=== PATIENT | male | born 1955 | race Two or more races ===

== ENCOUNTER 2021-02-21 12:16 | Inpatient (IN) | payer MEDICARE, OTHER ==
[~2021-02-21] VITALS: Ht 175.3 cm; Wt 80.7 kg
[2021-02-21] MEDS ORDERED: Z GUARD REMEDY PASTE 57 GM TUBE TOP PRN (19:45)
[2021-02-21 21:10] VITALS: BP 142/79
[2021-02-21] MEDS ORDERED: ATOR20TA PO (21:33)
[2021-02-21] MEDS ORDERED: CHOL100062 PO (21:33)
[2021-02-21] MEDS ORDERED: PANT40TA49 PO (21:33)
[2021-02-21] MEDS ORDERED: AMLO-212 PO (21:33)
[2021-02-21] MEDS ORDERED: GLIP10TA11 PO (21:33)
[2021-02-21] MEDS ORDERED: OXCA300T15 PO (21:33)
[2021-02-21] MEDS ORDERED: ASPI-612 PO (21:33)
[2021-02-21] MEDS ORDERED: DEXTROSE 50% 50 ML DISP.SYRIN IV PRN (21:45)
--- NOTE | 2021-02-22 01:51 | NUR ---
Admitted pt on Rehab from [facility] with dx of subacute CVA, left sided weakness noted. He is alert and oriented x4, able to make needs known. Denies pain and discomfort at this time. On room air, no respiratory distress. Admission process observed, full body assessment done with photos taken, and MRSA swab collect and sent to lab. Urinal at bedside. Informed Dr. Diaz of admission and Damien Palumbo NP to do med recon. All needs attended. Call light placed within reach. Will continue to monitor.
[2021-02-22 05:21] VITALS: BP 152/78
[2021-02-22] MEDS: BLOOD SUGAR DIAGNOSTIC 1 EACH STRIP VI SCH ×5 (06:48→20:28)
[2021-02-22 09:03] VITALS: BP 147/80
[2021-02-22] MEDS ORDERED: METF-442 PO (10:27)
[2021-02-22] MEDS ORDERED: LABE300T2 PO (10:27)
[2021-02-22] MEDS ORDERED: CYCL5TAB PO (10:28)
[2021-02-22] MEDS ORDERED: LOSA1TAB39 PO (10:29)
[2021-02-22 11:59] VITALS: BP 162/83
[2021-02-22] MEDS: INSULIN REGULAR, HUMAN 300 UNIT/3 ML VIAL SQ PRN ×2 (17:01→20:28)
[2021-02-22] MEDS: AMLODIPINE 5 MG TABLET PO SCH (17:02)
[2021-02-22 20:18] VITALS: BP 140/85
[2021-02-22] MEDS: ATORVASTATIN 20 MG TABLET PO SCH (20:24)
[2021-02-22] MEDS: OXCARBAZEPINE 300 MG TABLET PO SCH (20:24)
[2021-02-22] MEDS: ACETAMINOPHEN 325 MG TABLET PO PRN (21:52)
[2021-02-23 04:18] VITALS: BP 162/98
[2021-02-23] MEDS: ACETAMINOPHEN 325 MG TABLET PO PRN (06:10)
[2021-02-23] MEDS: AMLODIPINE 5 MG TABLET PO SCH ×2 (06:10→16:55)
[2021-02-23] MEDS: PANTOPRAZOLE SODIUM 40 MG TABLET.DR PO SCH (06:38)
[2021-02-23] MEDS: BLOOD SUGAR DIAGNOSTIC 1 EACH STRIP VI SCH ×4 (06:39→20:38)
--- NOTE | 2021-02-23 06:40 | NUR ---
Pt slept intermittently throughout the night. Tylenol PRN given x2 d/t to headache, noted effective. Latest BP 162/88, Norvasc 5 mg given earlier than schedule. No order for BP PRN meds. All needs attended. Call light placed within reach. Will endorse to next shift for continuity of care.
[2021-02-23 06:49] LABS: HEMATOCRIT 38.9 % (36.7-47.1); MEAN CORPUSCULAR HEMOGLOBIN 30.1 uug (23.8-33.4); MEAN CORPUSCULAR VOLUME 87.4 fL (73.0-96.2); PLATELET COUNT (AUTO) 255 K/uL (152-348)
[2021-02-23 07:00] LABS: CREATININE 1.2 mg/dL (0.6-1.3); PHOSPHOROUS 2.5 mg/dL (2.5-4.9); POTASSIUM 3.3 mmol/L (3.5-5.1)
[2021-02-23 08:37] VITALS: BP 151/89
[2021-02-23] MEDS: HYDROCHLOROTHIAZIDE 25 MG TABLET PO SCH (08:39)
[2021-02-23] MEDS: ASPIRIN 325 MG TABLET PO SCH (08:39)
[2021-02-23] MEDS: LOSARTAN POTASSIUM 50 MG TABLET PO SCH (08:39)
[2021-02-23] MEDS: CHOLECALCIFEROL 1,000 UNIT TABLET PO SCH (08:40)
[2021-02-23] MEDS: INSULIN REGULAR, HUMAN 300 UNIT/3 ML VIAL SQ PRN ×4 (08:41→20:40)
[2021-02-23] MEDS: OXCARBAZEPINE 300 MG TABLET PO SCH ×2 (08:43→20:41)
[2021-02-23] MEDS ORDERED: Medication Not On Formulary EA (Losartan/Hydrochlorothiazide (Losartan-Hctz 100-25 Mg Ta PO SCH (09:00)
--- NOTE | 2021-02-23 09:00 | NUR ---
PATIENT VERBALIZED FEELING HOPELESS. REPORTED TO MD, ORDERED PSYCH CONSULT AND SOCIAL SERVICE CONSULT. WILL CONTINUE TO MONITOR.
[2021-02-23] MEDS ORDERED: POTASSIUM CHLORIDE 20 MEQ TAB.PRT.SR PO ONE (09:15)
[2021-02-23 15:23] VITALS: BP 153/89
--- NOTE | 2021-02-23 17:59 | NUR ---
UA SAMPLE OBTAINED AND SENT TO THE LAB ORDERED. WILL CONTINUE TO MONITOR.
--- NOTE | 2021-02-23 18:26 | NUR ---
PATIENT REMAINED STABLE DURING THE SHIFT. FREQUENT VISUAL CHECKS DONE. KEPT CALL LIGHT WITHIN REACH. ALL DUE MEDS GIVEN ORDERED. ALL NEEDS ATTENDED. SAFETY PRECAUTION MAINTAINED. WILL ENDORSE TO THE NEXT SHIFT FOR CONTINUITY OF CARE.
[2021-02-23 18:49] LABS: *BILIRUBIN,URIN NEGATIVE (NEGATIVE); *BLOOD, URINE NEGATIVE (NEGATIVE); *CLARITY,URINE CLEAR (CLEAR); *COLOR,URINE YELLOW (YELLOW); *KETONES,URINE TRACE (NEGATIVE); *UROBILINOGEN,URINE 0.2 E.U./dl (NORMAL); LEUKOCYTE ESTERASE ,URINE NEGATIVE (NEGATIVE); NITRITE, URINE NEGATIVE (NEGATIVE)
[2021-02-23 18:50] LABS: UGLUCOSE 1+ (NEGATIVE)
[2021-02-23 18:59] LABS: BACTERIA,URINE NONE SEEN /HPF (NONE SEEN); RBC,URINE 0-3 /HPF (0-3)
[2021-02-23 19:00] LABS: SQUAMOUS EPITHELIAL CELL,UR NONE SEEN /HPF (NONE SEEN)
[2021-02-23 20:18] VITALS: BP 145/81
[2021-02-23] MEDS: LAMOTRIGINE 25 MG TABLET PO SCH (20:41)
[2021-02-23] MEDS: ATORVASTATIN 20 MG TABLET PO SCH (20:41)
--- NOTE | 2021-02-23 21:01 | NUR ---
Received pt resting in bed. AAO x4. No acute distress noted. Denies pain/ discomfort. Pt expressed feeling of hopelessness because of his condition. Denies SI. Spent time with pt to talk and listen to his concerns, pt verbalized feeling better. Encouraged pt to call and let us know if he needs to talk or feeling hopeless or having any SI. Pt verbalized understanding. Due meds given as ordered. Blood sugar 179, insulin given as per sliding scale. Safety measures maintained. Call light and personal items within reach. Will continue to monitor.
[2021-02-24 04:21] VITALS: BP 170/106
--- NOTE | 2021-02-24 05:24 | NUR ---
Pt's BP this morning 170/106, HR 78. No acute distress noted. Pt denies SOB, CP, or dizziness. Pt asymptomatic. Notified [facility] [employer] COACH with new order for Clonidine 0.1mg PO Q6H PRN. Will carry out order.
[2021-02-24] MEDS ORDERED: CLONIDINE HCL 0.1 MG TABLET PO PRN (05:30)
[2021-02-24] MEDS: PANTOPRAZOLE SODIUM 40 MG TABLET.DR PO SCH (06:30)
[2021-02-24] MEDS: BLOOD SUGAR DIAGNOSTIC 1 EACH STRIP VI SCH ×4 (06:31→20:31)
[2021-02-24 06:45] VITALS: BP 140/77
[2021-02-24 08:50] VITALS: BP 137/78
[2021-02-24] MEDS: ASPIRIN 325 MG TABLET PO SCH (09:24)
[2021-02-24] MEDS: CHOLECALCIFEROL 1,000 UNIT TABLET PO SCH (09:24)
[2021-02-24] MEDS: LAMOTRIGINE 25 MG TABLET PO SCH ×2 (09:34→20:31)
[2021-02-24] MEDS: AMLODIPINE 5 MG TABLET PO SCH ×2 (09:34→16:36)
[2021-02-24] MEDS: OXCARBAZEPINE 300 MG TABLET PO SCH ×2 (09:35→20:31)
[2021-02-24] MEDS: INSULIN REGULAR, HUMAN 300 UNIT/3 ML VIAL SQ PRN ×4 (09:42→20:34)
--- NOTE | 2021-02-24 09:55 | NUR ---
INDIVIDUALIZED PLAN OF CARE
[2021-02-24] MEDS: HYDROCHLOROTHIAZIDE 25 MG TABLET PO SCH (11:47)
[2021-02-24] MEDS: LOSARTAN POTASSIUM 50 MG TABLET PO SCH (11:48)
[2021-02-24 15:48] VITALS: BP 147/90
--- NOTE | 2021-02-24 16:02 | NUR ---
Clinical Social Work Note SW spoke with JOSLYN Aguilar and informed her of patient scoring a 13 on PHQ9 and in need of a psych consult. Per Lauren, a psych order has already been made.
--- NOTE | 2021-02-24 16:28 | NUR ---
Clinical Social Work Note SW consult was request due to patient feeling hopeless and recently having a stroke. Patient is a 65 year old male who is alert and oriented x4. Patient presents with a depressed mood and flat affect. Patient stated that he has no hopes of recover and does not know how to be positive. CHALINO conducted the PHQ9 post stroke depression screening and patient scored (13) which requires a psychiatry consultation and RN must conduct a suicide risk screening. SW discussed information about the importance of stroke. Patient accepted stroke referrals such as: Stroke Family Warmline at (1-277-5-STROKE) and Caring for a stroke survivor ( ). youth accommodation support worker also educated patient on the signs of Stroke and to immediately call 911. [employer] provided patient with a stroke educational packet with information such as; Dietary food, what stroke is, risks, emotional support, finding support, medical management, and effects of stroke. Addendum: 02/24/21 at 1634 by CHALINO AMAYA CHALINO spoke with JOSLYN Aguilar, who stated that a psych consulted has already been done.
[2021-02-24] MEDS: ACETAMINOPHEN 325 MG TABLET PO PRN (20:31)
[2021-02-24] MEDS: ATORVASTATIN 20 MG TABLET PO SCH (20:31)
[2021-02-24 20:45] VITALS: BP 150/73
--- NOTE | 2021-02-24 20:52 | NUR ---
Received pt resting in bed and watching tv. AAO x4. No acute distress noted. Denies SI, but still expressed being sad about his condition. Spent time to talk and listen to pt's concern. Encouraged pt to call and let us know if he needs to talk or feeling hopeless or having any SI. Pt verbalized understanding. Due meds given as ordered. Blood sugar 252, insulin given as per sliding scale. Safety measures maintained. Call light within reach. Will continue to monitor.
[2021-02-25 04:09] VITALS: BP 171/86
[2021-02-25] MEDS: CLONIDINE HCL 0.1 MG TABLET PO PRN (05:00)
[2021-02-25 06:36] VITALS: BP 123/74
[2021-02-25] MEDS: BLOOD SUGAR DIAGNOSTIC 1 EACH STRIP VI SCH ×4 (06:43→20:31)
[2021-02-25] MEDS: PANTOPRAZOLE SODIUM 40 MG TABLET.DR PO SCH (06:43)
[2021-02-25 08:00] VITALS: BP 138/63
[2021-02-25] MEDS: INSULIN REGULAR, HUMAN 300 UNIT/3 ML VIAL SQ PRN ×4 (08:25→21:16)
--- NOTE | 2021-02-25 08:30 | NUR ---
RECEIVED PATIENT IN ROOM SITTING AT THE EDGE OF THE BED HE IS AWAKE ALERT ORIENTED BUT DEPRESSED HOPELESS AT THIS TIME WITH BOUTS OF NEGATIVE FEELINGS SUCH WHAT IS THERE TO LIVE FOR PATIENT ENCOURAGED TO EXPRESS FEELINGS ONE OF WHICH IS BORED WITH SAME BREAKFAST FOR THE LAST FOUR DAYS CALLED THE KITCHEN AND ASKED THEM TO SEND HIM A MENU SO THAT HE CAN CHOOSE WHAT HE WILL LIKE TO EAT INSTEAD OF THEM SENDING HIM RANDOM STUFFS AND HE AGREED.WILL CONTINUE TO OBSERVE AND REASON WITH THE PATIENT AND ATTEMPTS TO ENCOURAGE HIM TO SEE THE POSITIVE SIDES OF HIS LIFE.
[2021-02-25] MEDS: ASPIRIN 325 MG TABLET PO SCH (08:39)
[2021-02-25] MEDS: HYDROCHLOROTHIAZIDE 25 MG TABLET PO SCH (08:40)
[2021-02-25] MEDS: CHOLECALCIFEROL 1,000 UNIT TABLET PO SCH (08:40)
[2021-02-25] MEDS: OXCARBAZEPINE 300 MG TABLET PO SCH ×2 (08:40→20:28)
[2021-02-25] MEDS: AMLODIPINE 5 MG TABLET PO SCH ×2 (08:41→17:24)
[2021-02-25] MEDS: LOSARTAN POTASSIUM 50 MG TABLET PO SCH (08:42)
[2021-02-25] MEDS: LAMOTRIGINE 25 MG TABLET PO SCH ×2 (08:42→20:29)
--- NOTE | 2021-02-25 09:30 | NUR ---
NEW ORDERS NOTED FROM DR WARREN AT THIS TIME
[2021-02-25] MEDS: METFORMIN HCL 500 MG TABLET PO SCH ×2 (10:17→17:24)
--- NOTE | 2021-02-25 10:17 | NUR ---
IN ATTEMPT TO GIVE HIM METFORMIN ORDERED PATIENT WAS VERY ARGUMENTATIVE STATED HE DOES NOT KNOW WHY HE DID NOT RECEIVE METFORMIN SINCE HE IS HERE EXPLAINED TO HIM THAT SOMETIMES MEDICATIONS ARE BEING HELD UPON ADMISSION AND WILL THEN BE GRADUALLY RELEASED REFUSED AT FIRST THEN FINALLY TOOK THE MEDS.
--- NOTE | 2021-02-25 10:30 | NUR ---
PATIENT SEEN AND EXAMINED BY DR LACEY WITH NO NEW ORDERS AT THIS TIME.
[2021-02-25 16:00] VITALS: BP 144/81
--- NOTE | 2021-02-25 16:30 | NUR ---
PHYSICAL THERAPIST STATED THAT PATIENT WAS NAUSEOUS DURING HER SESSION WITH HIM BUT WHEN I ASSESSED HIM HE STATED THAT HE HAD THIS FEELING TO VOMIT THAT WENT AWAY QUICKLY STATED HE WAS OKAY NOW
--- NOTE | 2021-02-25 18:00 | NUR ---
ASSISTED TO THE EDGE OF THE BED PATIENT ATE HIS DINNER WITH GOOD APPETITE WITH NO S/S OF N/V AT THIS TIME.
[2021-02-25] MEDS: ATORVASTATIN 20 MG TABLET PO SCH (20:28)
[2021-02-25 20:58] VITALS: BP 154/84
--- NOTE | 2021-02-25 21:00 | NUR ---
PATIENT IS AWAKE ALERT AND ORIENTED DENIES PAIN OR DISCOMFORTS AT THIS TIME NO S/S OF HYPO/HYPERGLYCEMIC REACTIONS CALL LIGHTS AND PERSONAL BELONGINGS ARE WITHIN EASY REACH MADE COMFORTABLE WILL OBSERVE
[2021-02-26] MEDS: METHOCARBAMOL 750 MG TABLET PO PRN (06:46)
[2021-02-26] MEDS: PANTOPRAZOLE SODIUM 40 MG TABLET.DR PO SCH (06:46)
[2021-02-26] MEDS: BLOOD SUGAR DIAGNOSTIC 1 EACH STRIP VI SCH ×4 (06:47→20:44)
--- NOTE | 2021-02-26 06:49 | NUR ---
PATIENT C/O NECK PAIN STIFFNESS AND SPASMS MEDICATED WIT ROBAXIN ORDERED MADE COMFORTABLE.
[2021-02-26 08:00] VITALS: BP 163/88
--- NOTE | 2021-02-26 08:00 | NUR ---
Pt received awake, hyperverbal, but calm, A/O s3. Left sided weakness is present, sitting on the side of the bed, ready for breakfast. pt is verbalizing passive s.i, saying "they should put me down, like they put down cats." Pt is compliant with medications, denies pain.
[2021-02-26] MEDS: ASPIRIN 325 MG TABLET PO SCH (08:34)
[2021-02-26] MEDS: LOSARTAN POTASSIUM 50 MG TABLET PO SCH (08:34)
[2021-02-26] MEDS: HYDROCHLOROTHIAZIDE 25 MG TABLET PO SCH (08:34)
[2021-02-26] MEDS: METFORMIN HCL 500 MG TABLET PO SCH ×2 (08:34→17:00)
[2021-02-26] MEDS: AMLODIPINE 5 MG TABLET PO SCH ×2 (08:35→16:51)
[2021-02-26] MEDS: LAMOTRIGINE 25 MG TABLET PO SCH ×2 (08:35→20:39)
[2021-02-26] MEDS: CHOLECALCIFEROL 1,000 UNIT TABLET PO SCH (08:35)
[2021-02-26] MEDS: OXCARBAZEPINE 300 MG TABLET PO SCH ×2 (08:36→20:39)
[2021-02-26] MEDS: INSULIN REGULAR, HUMAN 300 UNIT/3 ML VIAL SQ PRN ×2 (08:37→12:21)
[2021-02-26 09:10] LABS: HEMATOCRIT 39.8 % (36.7-47.1); MEAN CORPUSCULAR VOLUME 87.1 fL (73.0-96.2); PLATELET COUNT (AUTO) 283 K/uL (152-348)
[2021-02-26 09:26] LABS: BILIRUBIN,TOTAL 0.4 mg/dL (0.2-1.0); CREATININE 1.7 mg/dL (0.6-1.3); PHOSPHOROUS 3.2 mg/dL (2.5-4.9); POTASSIUM 3.1 mmol/L (3.5-5.1); TOTAL PROTEIN, SERUM 7.8 g/dL (6.4-8.2)
--- NOTE | 2021-02-26 10:20 | NUR ---
INTERDISCIPLINARY TEAM CONFERENCE
[2021-02-26 11:28] LABS: THYROID STIMULATING HORMONE 0.744 mIU/mL (0.358-3.740)
[2021-02-26] MEDS: glipiZIDE 5 MG TABLET PO SCH ×2 (12:11→16:52)
[2021-02-26] MEDS: ONDANSETRON ODT 4 MG TAB.RAPDIS SL PRN (12:11)
[2021-02-26 16:00] VITALS: BP 144/86
[2021-02-26] MEDS: hydrALAZINE HCL 25 MG TABLET PO SCH ×2 (16:52→21:55)
[2021-02-26] MEDS: PSYLLIUM SEED PACKET PO SCH (18:26)
[2021-02-26 20:00] VITALS: BP 135/75
[2021-02-26] MEDS: ATORVASTATIN 20 MG TABLET PO SCH (20:39)
[2021-02-27 04:00] VITALS: BP 160/88
[2021-02-27] MEDS: hydrALAZINE HCL 25 MG TABLET PO SCH ×4 (05:51→22:00)
[2021-02-27] MEDS: BLOOD SUGAR DIAGNOSTIC 1 EACH STRIP VI SCH ×4 (06:31→20:27)
[2021-02-27] MEDS: PANTOPRAZOLE SODIUM 40 MG TABLET.DR PO SCH (06:31)
[2021-02-27] MEDS: glipiZIDE 5 MG TABLET PO SCH ×2 (06:31→16:35)
--- NOTE | 2021-02-27 06:32 | NUR ---
Pt slept throughout the night, no respiratory distress noted. Denies pain and discomfort at this time. All due meds given and tolerated well. Accucheck done, BS 171. All needs attended. Call light placed within reach. Frequent visual checks done. Will endorse to next shift for continuity of care.
[2021-02-27 07:59] VITALS: BP 178/99
[2021-02-27] MEDS: ASPIRIN 325 MG TABLET PO SCH (08:46)
[2021-02-27] MEDS: METFORMIN HCL 500 MG TABLET PO SCH ×2 (08:46→17:21)
[2021-02-27] MEDS: AMLODIPINE 5 MG TABLET PO SCH ×2 (08:47→16:35)
[2021-02-27] MEDS: CHOLECALCIFEROL 1,000 UNIT TABLET PO SCH (08:48)
[2021-02-27] MEDS: HYDROCHLOROTHIAZIDE 25 MG TABLET PO SCH (08:48)
[2021-02-27] MEDS: LOSARTAN POTASSIUM 50 MG TABLET PO SCH (08:48)
[2021-02-27] MEDS: OXCARBAZEPINE 300 MG TABLET PO SCH ×2 (08:49→20:22)
[2021-02-27] MEDS: PSYLLIUM SEED PACKET PO SCH (08:49)
[2021-02-27] MEDS: LAMOTRIGINE 25 MG TABLET PO SCH ×2 (08:49→20:22)
[2021-02-27] MEDS: INSULIN REGULAR, HUMAN 300 UNIT/3 ML VIAL SQ PRN ×2 (08:52→16:37)
[2021-02-27] MEDS: ONDANSETRON ODT 4 MG TAB.RAPDIS SL PRN (11:02)
--- NOTE | 2021-02-27 18:22 | NUR ---
Patient remained stable during the shift. No distress identified. no pain noted, tolerated therapy well. Noted with with n/v x1, Zofran prn given, effective. Compliant with meds. Safety measures maintained. Frequent checks done. Call light within reach. All due meds given. All needs attended. Will endorse to the next shift for continuity of care.
[2021-02-27 20:00] VITALS: BP 149/87
[2021-02-27] MEDS: ATORVASTATIN 20 MG TABLET PO SCH (20:22)
[2021-02-28 04:00] VITALS: BP 159/80
[2021-02-28] MEDS: PANTOPRAZOLE SODIUM 40 MG TABLET.DR PO SCH (05:46)
[2021-02-28] MEDS: glipiZIDE 5 MG TABLET PO SCH ×2 (05:46→17:00)
[2021-02-28] MEDS: BLOOD SUGAR DIAGNOSTIC 1 EACH STRIP VI SCH ×4 (05:46→21:07)
[2021-02-28] MEDS: hydrALAZINE HCL 25 MG TABLET PO SCH ×3 (05:51→21:17)
[2021-02-28 06:43] LABS: HEMATOCRIT 39.4 % (36.7-47.1); MEAN CORPUSCULAR HEMOGLOBIN 30.1 uug (23.8-33.4); MEAN CORPUSCULAR VOLUME 87.8 fL (73.0-96.2); PLATELET COUNT (AUTO) 286 K/uL (152-348)
[2021-02-28 07:11] LABS: CREATININE 1.7 mg/dL (0.6-1.3); MAGNESIUM 2.1 mg/dL (1.8-2.4); PHOSPHOROUS 3.1 mg/dL (2.5-4.9); POTASSIUM 2.9 mmol/L (3.5-5.1)
[2021-02-28 07:45] VITALS: BP 157/80
[2021-02-28] MEDS: METFORMIN HCL 500 MG TABLET PO SCH ×2 (08:15→17:53)
[2021-02-28] MEDS: ASPIRIN 325 MG TABLET PO SCH (08:18)
[2021-02-28] MEDS: INSULIN REGULAR, HUMAN 300 UNIT/3 ML VIAL SQ PRN ×4 (08:18→21:14)
[2021-02-28] MEDS: AMLODIPINE 5 MG TABLET PO SCH ×2 (08:19→17:53)
[2021-02-28] MEDS: LOSARTAN POTASSIUM 50 MG TABLET PO SCH (08:19)
[2021-02-28] MEDS: CHOLECALCIFEROL 1,000 UNIT TABLET PO SCH (08:19)
[2021-02-28] MEDS: HYDROCHLOROTHIAZIDE 25 MG TABLET PO SCH (08:20)
[2021-02-28] MEDS: PSYLLIUM SEED PACKET PO SCH (08:20)
[2021-02-28] MEDS: LAMOTRIGINE 25 MG TABLET PO SCH ×2 (08:20→20:54)
[2021-02-28] MEDS: OXCARBAZEPINE 300 MG TABLET PO SCH ×2 (08:21→20:58)
[2021-02-28] MEDS: POTASSIUM CHLORIDE 10 MEQ TAB.PRT.SR PO SCH ×5 (11:12→20:07)
[2021-02-28 16:21] VITALS: BP 152/93
[2021-02-28 20:00] VITALS: BP 131/78
[2021-02-28 20:40] VITALS: BP 131/78
[2021-02-28] MEDS: ATORVASTATIN 20 MG TABLET PO SCH (20:54)
[2021-03-01 04:00] VITALS: BP 155/81
[2021-03-01] MEDS ORDERED: hydrALAZINE HCL 25 MG TABLET ONE (05:41)
[2021-03-01] MEDS: hydrALAZINE HCL 25 MG TABLET PO SCH ×3 (05:44→21:26)
[2021-03-01] MEDS: glipiZIDE 5 MG TABLET PO SCH ×3 (06:38→16:09)
[2021-03-01] MEDS: PANTOPRAZOLE SODIUM 40 MG TABLET.DR PO SCH (06:38)
[2021-03-01] MEDS: BLOOD SUGAR DIAGNOSTIC 1 EACH STRIP VI SCH ×4 (06:39→20:39)
[2021-03-01 07:09] LABS: CREATININE 1.8 mg/dL (0.6-1.3); POTASSIUM 3.3 mmol/L (3.5-5.1)
[2021-03-01 07:57] VITALS: BP 139/84
[2021-03-01] MEDS: INSULIN REGULAR, HUMAN 300 UNIT/3 ML VIAL SQ PRN ×4 (08:16→20:42)
[2021-03-01] MEDS: CHOLECALCIFEROL 1,000 UNIT TABLET PO SCH (08:18)
[2021-03-01] MEDS: ASPIRIN 325 MG TABLET PO SCH (08:18)
[2021-03-01] MEDS: AMLODIPINE 5 MG TABLET PO SCH ×2 (08:19→16:10)
[2021-03-01] MEDS: LOSARTAN POTASSIUM 50 MG TABLET PO SCH (08:19)
[2021-03-01] MEDS: HYDROCHLOROTHIAZIDE 25 MG TABLET PO SCH (08:20)
[2021-03-01] MEDS: METHOCARBAMOL 750 MG TABLET PO PRN (08:21)
[2021-03-01] MEDS: OXCARBAZEPINE 300 MG TABLET PO SCH ×2 (08:21→20:28)
[2021-03-01] MEDS: PSYLLIUM SEED PACKET PO SCH (08:21)
[2021-03-01] MEDS: LAMOTRIGINE 25 MG TABLET PO SCH ×2 (08:22→20:27)
[2021-03-01] MEDS ORDERED: POTASSIUM CHLORIDE 20 MEQ TAB.PRT.SR PO ONE ×2 (10:00)
[2021-03-01 15:16] VITALS: BP 136/75
--- NOTE | 2021-03-01 16:38 | NUR ---
no acute distress noted during shift
--- NOTE | 2021-03-01 19:40 | NUR ---
Received patient sitting at the edge of the bed. AAOX4, with episodes of passive-aggressiveness. Left sided weakness is present. Patient denies SOB, chest pain or dizziness. Able to make needs known. Safety precautions and comfort measures initiated. Bed in locked position, call light within and frequently used items within reach. Will continue to monitor.
[2021-03-01 20:12] VITALS: BP 148/78
[2021-03-01] MEDS: ATORVASTATIN 20 MG TABLET PO SCH (20:28)
[2021-03-02 04:12] VITALS: BP 165/89
[2021-03-02] MEDS: glipiZIDE 5 MG TABLET PO SCH ×2 (06:30→17:13)
[2021-03-02] MEDS: PANTOPRAZOLE SODIUM 40 MG TABLET.DR PO SCH (06:30)
[2021-03-02] MEDS: BLOOD SUGAR DIAGNOSTIC 1 EACH STRIP VI SCH ×4 (06:32→20:29)
[2021-03-02 06:40] LABS: CREATININE 1.5 mg/dL (0.6-1.3)
--- NOTE | 2021-03-02 06:51 | NUR ---
Pt intermittently slept through the night with no complaints of SOB, chest pain or dizziness. Pt is compliant with medication. Needs were attended to and met. Blood pressure slightly elevated at 166/70mmhg, unable to pull out ordered Apresoline 75mg (3 tablets) Q8H PO, from [facility]. Faxed medication order to nursing supervisor lens generating, however, nursing supervisor lens generating is attending to another important matter. Will endorse to day shift nurse.
[2021-03-02] MEDS: hydrALAZINE HCL 25 MG TABLET PO SCH ×3 (07:29→21:52)
[2021-03-02 08:00] VITALS: BP 158/90
[2021-03-02] MEDS: INSULIN REGULAR, HUMAN 300 UNIT/3 ML VIAL SQ PRN ×4 (08:14→20:32)
[2021-03-02 08:40] LABS: *BILIRUBIN,URIN NEGATIVE (NEGATIVE); *BLOOD, URINE NEGATIVE (NEGATIVE); *CLARITY,URINE CLEAR (CLEAR); *COLOR,URINE YELLOW (YELLOW); *KETONES,URINE NEGATIVE (NEGATIVE); *UROBILINOGEN,URINE 0.2 E.U./dl (NORMAL); LEUKOCYTE ESTERASE ,URINE NEGATIVE (NEGATIVE); NITRITE, URINE NEGATIVE (NEGATIVE); PH,URINE 5.5 (5.0-8.0); UGLUCOSE NEGATIVE (NEGATIVE)
[2021-03-02] MEDS: ASPIRIN 325 MG TABLET PO SCH (09:04)
[2021-03-02] MEDS: LOSARTAN POTASSIUM 50 MG TABLET PO SCH (09:04)
[2021-03-02] MEDS: AMLODIPINE 5 MG TABLET PO SCH ×2 (09:04→17:13)
[2021-03-02] MEDS: HYDROCHLOROTHIAZIDE 25 MG TABLET PO SCH (09:05)
[2021-03-02] MEDS: LAMOTRIGINE 25 MG TABLET PO SCH ×2 (09:05→20:33)
[2021-03-02] MEDS: CHOLECALCIFEROL 1,000 UNIT TABLET PO SCH (09:05)
[2021-03-02] MEDS: OXCARBAZEPINE 300 MG TABLET PO SCH ×2 (09:05→20:33)
[2021-03-02] MEDS: PSYLLIUM SEED PACKET PO SCH (09:05)
--- NOTE | 2021-03-02 09:30 | NUR ---
received awake and communicative. denies pain or sob. urine in specimen cup sent to lab. left side weakness noted. eating breakfast aspiration precautions observed at all times. kept comfortable. call light in reach. safety measure in place.
--- NOTE | 2021-03-02 11:09 | NUR ---
inserted rfa 20g iv with good back flow and tolerated.
[2021-03-02] MEDS: POTASSIUM CHLORIDE 50 ML IV SCH ×2 (11:10→12:15)
[2021-03-02] MEDS ORDERED: POTASSIUM CHLORIDE 10 MEQ TAB.PRT.SR PO ONE (13:00)
[2021-03-02] MEDS ORDERED: POTASSIUM CHLORIDE 20 MEQ TAB.PRT.SR PO ONE (13:00)
[2021-03-02 15:30] VITALS: BP 146/81
--- NOTE | 2021-03-02 18:47 | NUR ---
sitting in chair with visitor. denies pain or sob. no acute distress. compliant with medications. no s/sx of aspiration noted. kept comfortable. call light in reach. safety precautions kept. cont to monitor.
--- NOTE | 2021-03-02 20:00 | NUR ---
NSG: Pt received awake alert x3, lying in bed, Left sided weakness is present, denies pain or discomfort at this time. Pt is compliant with medications. continue plan of care.
[2021-03-02 20:09] VITALS: BP 136/83
[2021-03-02] MEDS: ATORVASTATIN 20 MG TABLET PO SCH (20:33)
[2021-03-03 04:12] VITALS: BP 164/92
[2021-03-03] MEDS: hydrALAZINE HCL 25 MG TABLET PO SCH (05:09)
[2021-03-03] MEDS: CLONIDINE HCL 0.1 MG TABLET PO PRN (05:17)
--- NOTE | 2021-03-03 05:18 | NUR ---
patient refused Catapres po for b/p above 164/92. took hydralazine 75 mg po routine dose.
[2021-03-03] MEDS: BLOOD SUGAR DIAGNOSTIC 1 EACH STRIP VI SCH ×4 (06:16→22:02)
[2021-03-03] MEDS: PANTOPRAZOLE SODIUM 40 MG TABLET.DR PO SCH (07:02)
[2021-03-03] MEDS: glipiZIDE 5 MG TABLET PO SCH ×2 (07:02→17:11)
[2021-03-03 07:18] LABS: CREATININE 1.5 mg/dL (0.6-1.3); POTASSIUM 3.4 mmol/L (3.5-5.1)
[2021-03-03 07:21] VITALS: BP 140/88
--- NOTE | 2021-03-03 07:48 | NUR ---
received being assisted back to the bed by siding coreboard inspector. no acute distress. denies pain or sob. bed low and locked. call light placed within reach. pt stated he would like to rest a little. made comfortable. bed low and locked siderails up x2. cont to monitor.
[2021-03-03 07:59] VITALS: BP 158/83
[2021-03-03] MEDS: INSULIN REGULAR, HUMAN 300 UNIT/3 ML VIAL SQ PRN ×3 (08:12→22:33)
[2021-03-03] MEDS: ASPIRIN 325 MG TABLET PO SCH (09:13)
[2021-03-03] MEDS: LOSARTAN POTASSIUM 50 MG TABLET PO SCH (09:14)
[2021-03-03] MEDS: HYDROCHLOROTHIAZIDE 25 MG TABLET PO SCH (09:14)
[2021-03-03] MEDS: OXCARBAZEPINE 300 MG TABLET PO SCH ×2 (09:14→22:00)
[2021-03-03] MEDS: CHOLECALCIFEROL 1,000 UNIT TABLET PO SCH (09:14)
[2021-03-03] MEDS: PSYLLIUM SEED PACKET PO SCH (09:15)
[2021-03-03] MEDS: AMLODIPINE 5 MG TABLET PO SCH ×2 (09:15→17:11)
[2021-03-03] MEDS: LAMOTRIGINE 25 MG TABLET PO SCH ×2 (09:16→22:01)
[2021-03-03] MEDS: METHOCARBAMOL 750 MG TABLET PO PRN (09:24)
[2021-03-03] MEDS ORDERED: POTASSIUM CHLORIDE 20 MEQ TAB.PRT.SR PO ONE (10:00)
[2021-03-03] MEDS: hydrALAZINE HCL 50 MG TABLET PO SCH ×2 (14:00→22:01)
[2021-03-03 15:09] VITALS: BP 127/77
--- NOTE | 2021-03-03 15:12 | NUR ---
Informed Dr. García pt refused to take Hydralazine stated it makes him dizzy. Per Dr. García ok to hold it for now and cont monitor. BP 123/80 hr 86 at this time.
--- NOTE | 2021-03-03 18:47 | NUR ---
in bed watching tv. no acute distress. comfortable. call light in reach. cont to monitor.
[2021-03-03 20:12] VITALS: BP 103/82
[2021-03-03] MEDS: ATORVASTATIN 20 MG TABLET PO SCH (22:01)
[2021-03-04 04:15] VITALS: BP 156/89
--- NOTE | 2021-03-04 05:00 | NUR ---
Received to care, pleasant upon approach, no distress noted. Assited to the bathroom, via FWW, with minimal assist. Assisted to all needs.
[2021-03-04] MEDS: hydrALAZINE HCL 50 MG TABLET PO SCH ×3 (06:15→22:00)
[2021-03-04] MEDS: ACETAMINOPHEN 325 MG TABLET PO PRN (06:33)
[2021-03-04] MEDS: BLOOD SUGAR DIAGNOSTIC 1 EACH STRIP VI SCH ×4 (06:34→20:41)
[2021-03-04 07:00] LABS: CREATININE 1.6 mg/dL (0.6-1.3); POTASSIUM 3.1 mmol/L (3.5-5.1)
[2021-03-04 08:00] VITALS: BP 159/80
[2021-03-04] MEDS: CHOLECALCIFEROL 1,000 UNIT TABLET PO SCH (08:40)
[2021-03-04] MEDS: ASPIRIN 325 MG TABLET PO SCH (08:40)
[2021-03-04] MEDS: AMLODIPINE 5 MG TABLET PO SCH ×2 (08:42→17:43)
[2021-03-04] MEDS: LOSARTAN POTASSIUM 50 MG TABLET PO SCH (08:43)
[2021-03-04] MEDS: PSYLLIUM SEED PACKET PO SCH (08:43)
[2021-03-04] MEDS: HYDROCHLOROTHIAZIDE 25 MG TABLET PO SCH (08:43)
[2021-03-04] MEDS: LAMOTRIGINE 25 MG TABLET PO SCH ×2 (08:44→20:38)
[2021-03-04] MEDS: OXCARBAZEPINE 300 MG TABLET PO SCH ×2 (08:44→20:38)
[2021-03-04] MEDS: glipiZIDE 5 MG TABLET PO SCH ×2 (08:56→17:43)
[2021-03-04] MEDS: PANTOPRAZOLE SODIUM 40 MG TABLET.DR PO SCH (08:56)
[2021-03-04] MEDS ORDERED: POTASSIUM CHLORIDE 10 MEQ TAB.PRT.SR PO ONE (09:30)
[2021-03-04 15:58] VITALS: BP 142/85
[2021-03-04 16:00] VITALS: BP 142/85
--- NOTE | 2021-03-04 17:48 | NUR ---
REceived orders to discharge this patient. Patient is going to [facility] in the [facility] ambulance with his . Patient denies any pain or discomfort, not either SOB. Patient left the unit at 17:00. All belongings returned to the patient.
--- NOTE | 2021-03-04 18:53 | NUR ---
A/O X 3 to person, place, environment. Pt. affect is demanding, needy, hopeless, helpless. Pt. refuses hydralazine, selective with medications. Blood glucose 128, no coverage. Continent. Fall and safety precautions implemented.
[2021-03-04] MEDS: ATORVASTATIN 20 MG TABLET PO SCH (20:38)
[2021-03-04 20:42] VITALS: BP 131/74
[2021-03-04] MEDS: INSULIN REGULAR, HUMAN 300 UNIT/3 ML VIAL SQ PRN (20:42)
[2021-03-05 04:45] VITALS: BP 172/91
[2021-03-05] MEDS: hydrALAZINE HCL 50 MG TABLET PO SCH (05:53)
[2021-03-05] MEDS: PANTOPRAZOLE SODIUM 40 MG TABLET.DR PO SCH (06:10)
[2021-03-05] MEDS: glipiZIDE 5 MG TABLET PO SCH ×2 (06:10→17:19)
[2021-03-05] MEDS: BLOOD SUGAR DIAGNOSTIC 1 EACH STRIP VI SCH ×4 (06:15→20:39)
--- NOTE | 2021-03-05 06:18 | NUR ---
Shift End Report: VS stable. No complaint presented all night. All needs attended and met. Kept refusing to take his Apresoline. No significant event reported all night. Slept well. Continue current rehab plan of care.
[2021-03-05] MEDS: CLONIDINE HCL 0.1 MG TABLET PO PRN (06:33)
[2021-03-05] MEDS: AMLODIPINE 5 MG TABLET PO SCH (06:41)
--- NOTE | 2021-03-05 06:42 | NUR ---
Patient BP 172/91 refused Apresoline due at 0600, then PRN Clonidine, Agreeable with Norvasc 5 mg at this time given early as schedule. Will endorse to oncoming shift accordingly.
[2021-03-05 07:44] VITALS: BP 160/90
[2021-03-05] MEDS: ASPIRIN 325 MG TABLET PO SCH (08:39)
[2021-03-05] MEDS: OXCARBAZEPINE 300 MG TABLET PO SCH ×2 (08:40→20:37)
[2021-03-05] MEDS: LAMOTRIGINE 25 MG TABLET PO SCH ×2 (08:40→20:36)
[2021-03-05] MEDS: PSYLLIUM SEED PACKET PO SCH (08:40)
[2021-03-05] MEDS: CHOLECALCIFEROL 1,000 UNIT TABLET PO SCH (08:40)
[2021-03-05] MEDS: LOSARTAN POTASSIUM 50 MG TABLET PO SCH (08:41)
[2021-03-05] MEDS: HYDROCHLOROTHIAZIDE 25 MG TABLET PO SCH (08:41)
[2021-03-05] MEDS: INSULIN REGULAR, HUMAN 300 UNIT/3 ML VIAL SQ PRN ×4 (08:42→20:40)
--- NOTE | 2021-03-05 11:36 | NUR ---
INTERDISCIPLINARY TEAM CONFERENCE
--- NOTE | 2021-03-05 14:55 | NUR ---
Informed Dr. Whyte that patient has been refusing hydralazine as endorsed by plating department helper nurse and that SBP ranges from 150's-170's. MD ordered labetalol 300mg PO Q12hrs. Order carried out. Patient made aware and agreeable.
[2021-03-05 16:12] VITALS: BP 166/87
[2021-03-05] MEDS ORDERED: AMLODIPINE 5 MG TABLET PO ONE (17:00)
--- NOTE | 2021-03-05 18:30 | NUR ---
Patient remains alert, oriented x 4, not in any form of distress on room air. He denies any pain or discomfort. Patient participated with PT, OT and speech. Assisted with his needs promptly. Call light and frequently used items placed within patient's.
[2021-03-05 20:00] VITALS: BP 146/80
[2021-03-05] MEDS: ATORVASTATIN 20 MG TABLET PO SCH (20:36)
[2021-03-05] MEDS: LABETALOL HCL 200 MG TABLET PO SCH (20:36)
[2021-03-05] MEDS: METHOCARBAMOL 750 MG TABLET PO PRN (20:45)
[2021-03-06 04:00] VITALS: BP 139/75
[2021-03-06] MEDS: BLOOD SUGAR DIAGNOSTIC 1 EACH STRIP VI SCH ×4 (05:33→20:36)
[2021-03-06] MEDS: glipiZIDE 5 MG TABLET PO SCH ×2 (05:34→16:35)
[2021-03-06] MEDS: PANTOPRAZOLE SODIUM 40 MG TABLET.DR PO SCH (05:34)
--- NOTE | 2021-03-06 05:59 | NUR ---
Shift End Report: VS stable. Medicated once for neck pain complaint with relief. Slept good. All needs attended and met.
[2021-03-06 07:47] VITALS: BP 121/71
[2021-03-06] MEDS: CHOLECALCIFEROL 1,000 UNIT TABLET PO SCH (08:42)
[2021-03-06] MEDS: ASPIRIN 325 MG TABLET PO SCH (08:42)
[2021-03-06] MEDS: LOSARTAN POTASSIUM 50 MG TABLET PO SCH (08:51)
[2021-03-06] MEDS: HYDROCHLOROTHIAZIDE 25 MG TABLET PO SCH (08:56)
[2021-03-06] MEDS: LAMOTRIGINE 25 MG TABLET PO SCH ×2 (08:57→20:27)
[2021-03-06] MEDS: OXCARBAZEPINE 300 MG TABLET PO SCH ×2 (08:57→20:30)
[2021-03-06] MEDS ORDERED: AMLODIPINE 5 MG TABLET PO SCH (09:00)
[2021-03-06] MEDS: PSYLLIUM SEED PACKET PO SCH (09:00)
[2021-03-06] MEDS: METHOCARBAMOL 750 MG TABLET PO PRN (09:01)
[2021-03-06] MEDS: AMLODIPINE 10 MG TABLET PO SCH (11:44)
[2021-03-06] MEDS: LABETALOL HCL 200 MG TABLET PO SCH ×2 (11:45→20:29)
[2021-03-06] MEDS: INSULIN REGULAR, HUMAN 300 UNIT/3 ML VIAL SQ PRN ×3 (11:52→20:37)
[2021-03-06 15:22] VITALS: BP 133/65
[2021-03-06] MEDS: ATORVASTATIN 20 MG TABLET PO SCH (20:28)
[2021-03-06 21:26] VITALS: BP 149/84
[2021-03-07 05:21] VITALS: BP 160/88
[2021-03-07] MEDS: AMLODIPINE 10 MG TABLET PO SCH (06:14)
--- NOTE | 2021-03-07 06:14 | NUR ---
Pt slept throughout the night, easily arousable for care. He is alert and oriented x4, able to make needs known. BP 160/88, Norvasc given early as pt requested. Accucheck done, BS 200. Denies pain and discomfort at this time. All needs attended. Call light placed within reach. Frequent visual checks done. Will endorse to next shift.
[2021-03-07] MEDS: BLOOD SUGAR DIAGNOSTIC 1 EACH STRIP VI SCH ×4 (06:30→20:32)
[2021-03-07] MEDS: glipiZIDE 5 MG TABLET PO SCH ×2 (06:30→16:45)
[2021-03-07] MEDS: PANTOPRAZOLE SODIUM 40 MG TABLET.DR PO SCH (06:30)
[2021-03-07] MEDS: INSULIN REGULAR, HUMAN 300 UNIT/3 ML VIAL SQ PRN ×4 (08:02→20:38)
[2021-03-07] MEDS: ASPIRIN 325 MG TABLET PO SCH (08:03)
[2021-03-07] MEDS: LABETALOL HCL 200 MG TABLET PO SCH ×2 (08:03→20:26)
[2021-03-07] MEDS: CHOLECALCIFEROL 1,000 UNIT TABLET PO SCH (08:03)
[2021-03-07] MEDS: PSYLLIUM SEED PACKET PO SCH (08:04)
[2021-03-07] MEDS: LAMOTRIGINE 25 MG TABLET PO SCH (08:04)
[2021-03-07] MEDS: HYDROCHLOROTHIAZIDE 25 MG TABLET PO SCH (08:04)
[2021-03-07] MEDS: OXCARBAZEPINE 300 MG TABLET PO SCH ×2 (08:05→20:27)
[2021-03-07] MEDS: LOSARTAN POTASSIUM 50 MG TABLET PO SCH (08:06)
--- NOTE | 2021-03-07 13:25 | NUR ---
Pt seen and examine by DR Diaz pt expressed feeling upset about taking medication Lamshreya stated that it make him dizzy and do not want to take this medicine DR Diaz said to let DR Howard know about. Informed Dr. Howard that patient do not want to take this med. MD ordered for Lamictal to be D/C Patient made aware and agreeable.
[2021-03-07] MEDS: ATORVASTATIN 20 MG TABLET PO SCH (20:27)
[2021-03-07 20:49] VITALS: BP 155/77
[2021-03-08 04:55] VITALS: BP 139/86
[2021-03-08] MEDS: glipiZIDE 5 MG TABLET PO SCH ×2 (06:43→16:48)
[2021-03-08] MEDS: BLOOD SUGAR DIAGNOSTIC 1 EACH STRIP VI SCH ×4 (06:43→21:01)
[2021-03-08] MEDS: PANTOPRAZOLE SODIUM 40 MG TABLET.DR PO SCH (06:43)
[2021-03-08] MEDS: INSULIN REGULAR, HUMAN 300 UNIT/3 ML VIAL SQ PRN ×4 (07:52→21:03)
[2021-03-08] MEDS: CHOLECALCIFEROL 1,000 UNIT TABLET PO SCH (08:00)
[2021-03-08] MEDS: ASPIRIN 325 MG TABLET PO SCH (08:00)
[2021-03-08] MEDS: HYDROCHLOROTHIAZIDE 25 MG TABLET PO SCH (08:19)
[2021-03-08] MEDS: LOSARTAN POTASSIUM 50 MG TABLET PO SCH (08:19)
[2021-03-08] MEDS: AMLODIPINE 10 MG TABLET PO SCH (08:21)
[2021-03-08] MEDS: PSYLLIUM SEED PACKET PO SCH (08:21)
[2021-03-08] MEDS: LABETALOL HCL 200 MG TABLET PO SCH ×3 (08:22→22:07)
[2021-03-08] MEDS: OXCARBAZEPINE 300 MG TABLET PO SCH ×2 (08:22→21:02)
[2021-03-08 08:30] VITALS: BP 162/90
--- NOTE | 2021-03-08 10:13 | NUR ---
Patient was sitting in chair, complained feeling dizzy and extensive lethargy, blood pressure 88/45, excessive sweat, however patient remain alert, oriented x4, no sob, resp even nonlabored, spoke to dr mcclelland, patient. bolus administered as ordered, rechecked blood pressure 103/55. patient is alert, oriented x4, and stated he feels better, intermittently sleeping. continue to monitor.
[2021-03-08] MEDS ORDERED: IV NORMAL SALINE 500 ML IV ONE (10:15)
[2021-03-08 10:21] VITALS: BP 88/45
--- NOTE | 2021-03-08 10:21 | NUR ---
patient blood pressure 129/57, alert, oriented x4
[2021-03-08 10:22] VITALS: BP 129/57
[2021-03-08 16:00] VITALS: BP 150/76
[2021-03-08 20:00] VITALS: BP 129/73
[2021-03-08] MEDS: ATORVASTATIN 20 MG TABLET PO SCH (21:01)
[2021-03-09 04:00] VITALS: BP 158/81
[2021-03-09] MEDS: PANTOPRAZOLE SODIUM 40 MG TABLET.DR PO SCH (06:29)
[2021-03-09] MEDS: BLOOD SUGAR DIAGNOSTIC 1 EACH STRIP VI SCH ×4 (06:29→20:48)
[2021-03-09 08:00] VITALS: BP 111/68
[2021-03-09] MEDS: ASPIRIN 325 MG TABLET PO SCH (08:45)
[2021-03-09] MEDS: CHOLECALCIFEROL 1,000 UNIT TABLET PO SCH (08:45)
[2021-03-09] MEDS: LOSARTAN POTASSIUM 50 MG TABLET PO SCH (08:46)
[2021-03-09] MEDS: HYDROCHLOROTHIAZIDE 25 MG TABLET PO SCH (08:46)
[2021-03-09] MEDS: PSYLLIUM SEED PACKET PO SCH (08:47)
[2021-03-09] MEDS: OXCARBAZEPINE 300 MG TABLET PO SCH ×2 (08:47→20:46)
[2021-03-09] MEDS: glipiZIDE 5 MG TABLET PO SCH ×2 (08:50→16:33)
[2021-03-09] MEDS: AMLODIPINE 10 MG TABLET PO SCH (08:56)
[2021-03-09] MEDS: LABETALOL HCL 200 MG TABLET PO SCH ×2 (11:42→20:47)
[2021-03-09] MEDS: INSULIN REGULAR, HUMAN 300 UNIT/3 ML VIAL SQ PRN ×3 (11:44→20:49)
[2021-03-09 16:00] VITALS: BP 153/80
[2021-03-09 20:27] VITALS: BP 129/74
[2021-03-09] MEDS: ATORVASTATIN 20 MG TABLET PO SCH (20:47)
[2021-03-10 04:50] VITALS: BP 129/78
[2021-03-10] MEDS: BLOOD SUGAR DIAGNOSTIC 1 EACH STRIP VI SCH ×4 (06:00→22:15)
[2021-03-10] MEDS: PANTOPRAZOLE SODIUM 40 MG TABLET.DR PO SCH (06:01)
[2021-03-10] MEDS: glipiZIDE 5 MG TABLET PO SCH ×2 (06:01→16:29)
[2021-03-10 08:00] VITALS: BP 171/93
[2021-03-10] MEDS: OXCARBAZEPINE 300 MG TABLET PO SCH ×2 (08:33→22:25)
[2021-03-10] MEDS: CHOLECALCIFEROL 1,000 UNIT TABLET PO SCH (08:33)
[2021-03-10] MEDS: ASPIRIN 325 MG TABLET PO SCH (08:33)
[2021-03-10] MEDS: INSULIN REGULAR, HUMAN 300 UNIT/3 ML VIAL SQ PRN ×4 (08:43→22:57)
[2021-03-10] MEDS: AMLODIPINE 10 MG TABLET PO SCH (08:46)
[2021-03-10] MEDS: LABETALOL HCL 200 MG TABLET PO SCH ×2 (08:46→22:26)
[2021-03-10] MEDS: HYDROCHLOROTHIAZIDE 25 MG TABLET PO SCH (08:46)
[2021-03-10] MEDS: LOSARTAN POTASSIUM 50 MG TABLET PO SCH (08:47)
[2021-03-10] MEDS: PSYLLIUM SEED PACKET PO SCH (08:48)
--- NOTE | 2021-03-10 16:00 | NUR ---
Patient seen by Dr. Joe MD ordered cardio consult.
[2021-03-10 16:29] VITALS: BP 138/77
[2021-03-10 20:15] VITALS: BP 154/81
[2021-03-10] MEDS: ATORVASTATIN 20 MG TABLET PO SCH (22:22)
[2021-03-10] MEDS: ACETAMINOPHEN 325 MG TABLET PO PRN (22:22)
[2021-03-11 04:18] VITALS: BP 147/79
--- NOTE | 2021-03-11 05:26 | NUR ---
Received to care, pleasant upon approach, no distress noted. BRP, with minimal assist. Assisted to all needs.
[2021-03-11 07:06] LABS: MEAN CORPUSCULAR HEMOGLOBIN 30.9 uug (23.8-33.4); PLATELET COUNT (AUTO) 318 K/uL (152-348)
[2021-03-11] MEDS: BLOOD SUGAR DIAGNOSTIC 1 EACH STRIP VI SCH ×4 (07:13→21:01)
[2021-03-11] MEDS: PANTOPRAZOLE SODIUM 40 MG TABLET.DR PO SCH (07:23)
[2021-03-11 07:24] LABS: BILIRUBIN,TOTAL 0.3 mg/dL (0.2-1.0); CREATININE 1.4 mg/dL (0.6-1.3); PHOSPHOROUS 3.7 mg/dL (2.5-4.9); POTASSIUM 3.2 mmol/L (3.5-5.1); TOTAL PROTEIN, SERUM 7.8 g/dL (6.4-8.2)
[2021-03-11 08:03] VITALS: BP 156/77
[2021-03-11] MEDS: ASPIRIN 325 MG TABLET PO SCH (08:24)
[2021-03-11] MEDS: LOSARTAN POTASSIUM 50 MG TABLET PO SCH (08:24)
[2021-03-11] MEDS: CHOLECALCIFEROL 1,000 UNIT TABLET PO SCH (08:24)
[2021-03-11] MEDS: HYDROCHLOROTHIAZIDE 25 MG TABLET PO SCH (08:25)
[2021-03-11] MEDS: AMLODIPINE 10 MG TABLET PO SCH (08:25)
[2021-03-11] MEDS: INSULIN REGULAR, HUMAN 300 UNIT/3 ML VIAL SQ PRN ×3 (08:28→21:43)
[2021-03-11] MEDS: glipiZIDE 5 MG TABLET PO SCH ×2 (08:29→16:37)
[2021-03-11] MEDS: OXCARBAZEPINE 300 MG TABLET PO SCH ×2 (08:35→21:02)
[2021-03-11] MEDS: PSYLLIUM SEED PACKET PO SCH (08:35)
[2021-03-11] MEDS: LABETALOL HCL 200 MG TABLET PO SCH ×2 (10:58→21:04)
[2021-03-11] MEDS ORDERED: POTASSIUM CHLORIDE 20 MEQ TAB.PRT.SR PO ONE (12:00)
[2021-03-11 16:41] VITALS: BP 133/74
[2021-03-11 20:46] VITALS: BP 136/76
[2021-03-11] MEDS: ATORVASTATIN 20 MG TABLET PO SCH (21:02)
[2021-03-11] MEDS: hydrALAZINE HCL 25 MG TABLET PO SCH (21:05)
[2021-03-12 04:45] VITALS: BP 155/85
--- NOTE | 2021-03-12 06:09 | NUR ---
Received to care, pleasant upon approach, no distress noted. BRP, with minimal assist. Assisted to all needs.
[2021-03-12] MEDS: PANTOPRAZOLE SODIUM 40 MG TABLET.DR PO SCH (06:45)
[2021-03-12] MEDS: hydrALAZINE HCL 25 MG TABLET PO SCH ×3 (06:46→21:54)
[2021-03-12] MEDS: BLOOD SUGAR DIAGNOSTIC 1 EACH STRIP VI SCH ×4 (07:03→21:00)
[2021-03-12 08:00] VITALS: BP 155/80
[2021-03-12] MEDS: glipiZIDE 5 MG TABLET PO SCH ×2 (09:01→16:44)
[2021-03-12] MEDS: INSULIN REGULAR, HUMAN 300 UNIT/3 ML VIAL SQ PRN ×3 (09:03→21:57)
[2021-03-12] MEDS: GLIMEPIRIDE 2 MG TABLET PO SCH (09:07)
[2021-03-12] MEDS: LOSARTAN POTASSIUM 50 MG TABLET PO SCH (09:08)
[2021-03-12] MEDS: CHOLECALCIFEROL 1,000 UNIT TABLET PO SCH (09:09)
[2021-03-12] MEDS: PSYLLIUM SEED PACKET PO SCH (09:09)
[2021-03-12] MEDS: OXCARBAZEPINE 300 MG TABLET PO SCH ×2 (09:10→21:48)
[2021-03-12] MEDS: LABETALOL HCL 200 MG TABLET PO SCH ×2 (09:10→21:48)
[2021-03-12] MEDS: ASPIRIN EC 81 MG TABLET.DR PO SCH (10:07)
[2021-03-12 16:00] VITALS: BP 133/52
[2021-03-12 20:00] VITALS: BP 161/82
[2021-03-12] MEDS: AMLODIPINE 10 MG TABLET PO SCH (21:54)
[2021-03-12] MEDS: ATORVASTATIN 20 MG TABLET PO SCH (21:55)
[2021-03-13 04:00] VITALS: BP 142/82
[2021-03-13] MEDS: hydrALAZINE HCL 25 MG TABLET PO SCH (06:06)
[2021-03-13] MEDS: BLOOD SUGAR DIAGNOSTIC 1 EACH STRIP VI SCH ×4 (07:27→21:04)
[2021-03-13 07:52] VITALS: BP 151/84
[2021-03-13] MEDS: ASPIRIN EC 81 MG TABLET.DR PO SCH (08:47)
[2021-03-13] MEDS: glipiZIDE 5 MG TABLET PO SCH (08:47)
[2021-03-13] MEDS: GLIMEPIRIDE 2 MG TABLET PO SCH ×2 (08:47→17:08)
[2021-03-13] MEDS: CHOLECALCIFEROL 1,000 UNIT TABLET PO SCH (08:48)
[2021-03-13] MEDS: LOSARTAN POTASSIUM 50 MG TABLET PO SCH (08:48)
[2021-03-13] MEDS: LABETALOL HCL 200 MG TABLET PO SCH ×2 (08:48→20:52)
[2021-03-13] MEDS: PANTOPRAZOLE SODIUM 40 MG TABLET.DR PO SCH (08:48)
[2021-03-13] MEDS: OXCARBAZEPINE 300 MG TABLET PO SCH ×2 (08:49→20:51)
[2021-03-13] MEDS: PSYLLIUM SEED PACKET PO SCH (08:49)
--- NOTE | 2021-03-13 10:46 | NUR ---
INTERDISCIPLINARY TEAM CONFERENCE THIS WAS HELD AND OBSERVED 03/12/21 AT 13:00
[2021-03-13] MEDS: INSULIN REGULAR, HUMAN 300 UNIT/3 ML VIAL SQ PRN ×2 (12:10→21:07)
[2021-03-13] MEDS ORDERED: hydrALAZINE HCL 25 MG TABLET PO SCH (14:00)
[2021-03-13] MEDS: hydrALAZINE HCL 50 MG TABLET PO SCH ×2 (14:02→21:44)
[2021-03-13 16:00] VITALS: BP 112/57
--- NOTE | 2021-03-13 18:34 | NUR ---
Patient remained stable during the shift. Denies pain or discomfort. No distress identified. Kept call light within reach. All due meds given. All needs attended. Safety measures maintained. Will endorse for continuity of care.
[2021-03-13] MEDS: AMLODIPINE 10 MG TABLET PO SCH (20:51)
[2021-03-13] MEDS: ATORVASTATIN 20 MG TABLET PO SCH (20:51)
[2021-03-13 22:09] VITALS: BP 144/78
[2021-03-14] MEDS: hydrALAZINE HCL 50 MG TABLET PO SCH ×2 (05:47→21:08)
[2021-03-14 06:15] VITALS: BP 134/79
[2021-03-14] MEDS: PANTOPRAZOLE SODIUM 40 MG TABLET.DR PO SCH (06:48)
[2021-03-14] MEDS: BLOOD SUGAR DIAGNOSTIC 1 EACH STRIP VI SCH ×4 (06:48→21:14)
[2021-03-14] MEDS: LABETALOL HCL 200 MG TABLET PO SCH ×2 (09:18→21:09)
[2021-03-14] MEDS: ASPIRIN EC 81 MG TABLET.DR PO SCH (09:18)
[2021-03-14] MEDS: CHOLECALCIFEROL 1,000 UNIT TABLET PO SCH (09:18)
[2021-03-14] MEDS: LOSARTAN POTASSIUM 50 MG TABLET PO SCH (09:19)
[2021-03-14] MEDS: PSYLLIUM SEED PACKET PO SCH (09:19)
[2021-03-14] MEDS: OXCARBAZEPINE 300 MG TABLET PO SCH ×2 (09:20→21:10)
[2021-03-14] MEDS: GLIMEPIRIDE 2 MG TABLET PO SCH ×2 (09:20→17:25)
[2021-03-14] MEDS: INSULIN REGULAR, HUMAN 300 UNIT/3 ML VIAL SQ PRN ×4 (09:23→21:16)
--- NOTE | 2021-03-14 14:55 | NUR ---
Nursing- Stayed out of bed most of the morning, complained of pain cervical spine requesting hot pack to his neck, Dr Quiroz was in to see patient informed pt. request , ok to apply per Dr Urbano Quiroz
[2021-03-14 16:30] VITALS: BP 140/82
[2021-03-14 20:00] VITALS: BP 145/72
[2021-03-14] MEDS: AMLODIPINE 10 MG TABLET PO SCH (21:09)
[2021-03-14] MEDS: ATORVASTATIN 20 MG TABLET PO SCH (21:10)
[2021-03-15 04:00] VITALS: BP 139/70
[2021-03-15] MEDS: PANTOPRAZOLE SODIUM 40 MG TABLET.DR PO SCH (06:40)
[2021-03-15] MEDS: BLOOD SUGAR DIAGNOSTIC 1 EACH STRIP VI SCH ×4 (06:40→20:54)
[2021-03-15] MEDS: CHOLECALCIFEROL 1,000 UNIT TABLET PO SCH (08:07)
[2021-03-15] MEDS: LABETALOL HCL 200 MG TABLET PO SCH ×2 (08:07→20:45)
[2021-03-15] MEDS: GLIMEPIRIDE 2 MG TABLET PO SCH ×2 (08:10→17:25)
[2021-03-15] MEDS: hydrALAZINE HCL 50 MG TABLET PO SCH ×2 (08:12→20:46)
[2021-03-15] MEDS: ASPIRIN EC 81 MG TABLET.DR PO SCH (08:13)
[2021-03-15] MEDS: PSYLLIUM SEED PACKET PO SCH (08:13)
[2021-03-15] MEDS: OXCARBAZEPINE 300 MG TABLET PO SCH ×2 (08:14→20:43)
[2021-03-15] MEDS: INSULIN REGULAR, HUMAN 300 UNIT/3 ML VIAL SQ PRN ×3 (08:23→17:22)
[2021-03-15 08:48] VITALS: BP 143/72
[2021-03-15] MEDS: LOSARTAN POTASSIUM 50 MG TABLET PO SCH (09:12)
[2021-03-15 16:12] VITALS: BP 137/76
--- NOTE | 2021-03-15 18:31 | NUR ---
Patient is alert and oriented x 4, denies of any pain, pleasant and cooperative upon assessment. All due meds given per MD order. Patient in room air saturating at 96%. Able to follow simple commands. All needs met. Call light placed within reach.
[2021-03-15 20:00] VITALS: BP 156/82
[2021-03-15] MEDS: ATORVASTATIN 20 MG TABLET PO SCH (20:47)
[2021-03-15] MEDS: AMLODIPINE 10 MG TABLET PO SCH (20:47)
[2021-03-16 05:18] VITALS: BP 132/70
[2021-03-16] MEDS: BLOOD SUGAR DIAGNOSTIC 1 EACH STRIP VI SCH ×4 (06:35→21:00)
[2021-03-16] MEDS: PANTOPRAZOLE SODIUM 40 MG TABLET.DR PO SCH (06:35)
--- NOTE | 2021-03-16 06:43 | NUR ---
Pt slept intermittently throughout the night, easily arousable for care. Alert and oriented x4, able to make needs known, BRP. Denies pain and discomfort at this time. Accucheck done, BS 166. All needs attended. Call light placed within reach. Frequent visual checks done. Will endorse to next shift.
[2021-03-16 08:00] VITALS: BP 165/85
[2021-03-16] MEDS: ASPIRIN EC 81 MG TABLET.DR PO SCH (08:49)
[2021-03-16] MEDS: CHOLECALCIFEROL 1,000 UNIT TABLET PO SCH (08:50)
[2021-03-16] MEDS: LOSARTAN POTASSIUM 50 MG TABLET PO SCH (08:50)
[2021-03-16] MEDS: hydrALAZINE HCL 50 MG TABLET PO SCH ×2 (08:50→22:20)
[2021-03-16] MEDS: LABETALOL HCL 200 MG TABLET PO SCH ×2 (08:51→22:27)
[2021-03-16] MEDS: GLIMEPIRIDE 2 MG TABLET PO SCH ×2 (08:51→17:07)
[2021-03-16] MEDS: OXCARBAZEPINE 300 MG TABLET PO SCH ×2 (08:55→22:29)
[2021-03-16] MEDS: PSYLLIUM SEED PACKET PO SCH (08:56)
[2021-03-16 16:00] VITALS: BP 134/72
[2021-03-16] MEDS: SPIRONOLACTONE 25 MG TABLET PO SCH (17:08)
[2021-03-16] MEDS: ATORVASTATIN 20 MG TABLET PO SCH (22:21)
[2021-03-16] MEDS: AMLODIPINE 10 MG TABLET PO SCH (22:23)
[2021-03-17 04:53] VITALS: BP 147/77
[2021-03-17] MEDS: PANTOPRAZOLE SODIUM 40 MG TABLET.DR PO SCH (06:32)
[2021-03-17] MEDS: BLOOD SUGAR DIAGNOSTIC 1 EACH STRIP VI SCH ×2 (06:33→12:20)
[2021-03-17 06:53] LABS: HEMATOCRIT 35.7 % (36.7-47.1); MEAN CORPUSCULAR HEMOGLOBIN 30.5 uug (23.8-33.4); MEAN CORPUSCULAR VOLUME 88.7 fL (73.0-96.2); PLATELET COUNT (AUTO) 253 K/uL (152-348)
[2021-03-17 07:18] LABS: BILIRUBIN,TOTAL 0.3 mg/dL (0.2-1.0); CREATININE 1.3 mg/dL (0.6-1.3); PHOSPHOROUS 2.9 mg/dL (2.5-4.9); POTASSIUM 3.4 mmol/L (3.5-5.1)
[2021-03-17 08:00] VITALS: BP 136/81
[2021-03-17] MEDS: SPIRONOLACTONE 25 MG TABLET PO SCH (08:25)
[2021-03-17] MEDS: CHOLECALCIFEROL 1,000 UNIT TABLET PO SCH (08:25)
[2021-03-17] MEDS: GLIMEPIRIDE 2 MG TABLET PO SCH (08:25)
[2021-03-17] MEDS: LOSARTAN POTASSIUM 50 MG TABLET PO SCH (08:25)
[2021-03-17] MEDS: ASPIRIN EC 81 MG TABLET.DR PO SCH (08:25)
[2021-03-17 08:26] VITALS: BP 136/81
[2021-03-17] MEDS: LABETALOL HCL 200 MG TABLET PO SCH (08:26)
[2021-03-17] MEDS: PSYLLIUM SEED PACKET PO SCH (08:26)
[2021-03-17] MEDS: hydrALAZINE HCL 50 MG TABLET PO SCH (08:26)
[2021-03-17] MEDS: OXCARBAZEPINE 300 MG TABLET PO SCH (08:28)
--- NOTE | 2021-03-17 11:17 | NUR ---
Received awake and alert x4. Excited to be discharged. No acute distress. Denies pain or sob. Comfortable. Call light in reach. Safety precautions in place. Will cont to monitor.
--- NOTE | 2021-03-17 11:50 | NUR ---
Called day [place] x2 and spoke to jai. RN supervisor heat treating still doing iV and will call me back from report.
[2021-03-17] MEDS: INSULIN REGULAR, HUMAN 300 UNIT/3 ML VIAL SQ PRN (12:21)
--- NOTE | 2021-03-17 14:54 | NUR ---
Discharged instructions relayed to the patient, questions answered and verbalized understanding. Patient dressed and packed all his belongings stated they're all there and in good condition. Belonging list signed. Report given to Verna JORGENSEN at [place].
[2021-03-17] MEDS ORDERED: POTASSIUM CHLORIDE 20 MEQ TAB.PRT.SR PO ONE (15:00)
--- NOTE | 2021-03-17 15:25 | NUR ---
Discharged to [facility] in stable condition. Picked via gurney by 2 campus ambassador from [facility]. Alert and oriendted x4, denies pain or sob. No acute distress.
[2021-03-19 13:06] LABS: RENIN <0.167 ng/mL/hr (0.167-5.380)
== END 2021-03-17 15:25 | DRG 56 ==
PROVIDERS: ADMIT Physical Medicine & Rehabilitation Pain Medicine; ATTEND Physical Medicine & Rehabilitation Pain Medicine
DX: I69.354 Hemiplegia and hemiparesis following cerebral infarction affecting left non-dominant side (principal); N17.0 Acute kidney failure with tubular necrosis; F31.30 Bipolar disorder, current episode depressed, mild or moderate severity, unspecified; D68.59 Other primary thrombophilia; R45.851 Suicidal ideations; F43.21 Adjustment disorder with depressed mood; I69.392 Facial weakness following cerebral infarction; I65.23 Occlusion and stenosis of bilateral carotid arteries; I69.322 Dysarthria following cerebral infarction; E78.1 Pure hyperglyceridemia; E11.65 Type 2 diabetes mellitus with hyperglycemia; I10 Essential (primary) hypertension; I65.01 Occlusion and stenosis of right vertebral artery; I67.2 Cerebral atherosclerosis; Z79.899 Other long term (current) drug therapy; Z82.49 Family history of ischemic heart disease and other diseases of the circulatory system; E86.1 Hypovolemia; E87.6 Hypokalemia; T50.2X5A Adverse effect of carbonic-anhydrase inhibitors, benzothiadiazides and other diuretics, initial encounter; R26.81 Unsteadiness on feet; Z79.84 Long term (current) use of oral hypoglycemic drugs
CPT/HCPCS: 36415; 82088; 83735; 84100; 84244; 84443; 85025; 97161; J1815; J3480; J3490; J7040; Q0162